=== PATIENT | female | born 2000 | race Two or more races ===

== ENCOUNTER 2019-02-15 10:28 | Emergency (ER) | payer OTHER ==
[2019-02-15 10:36] VITALS: BP 131/65; PULSE 83; TEMP 97; BMI 25.9
[2019-02-15] MEDS ORDERED: ACETAMINOPHEN 500 MG TABLET (FP) PO ONE (11:02)
[2019-02-15] MEDS ORDERED: ACETAMINOPHEN 500 MG TABLET (FP) ONE (11:03)
--- NOTE | 2019-02-15 11:06 | PDOC ---
History of Present Illness - General Chief Complaint: Pain Stated Complaint: LT FOOT PAIN Time Seen by Provider: 02/15/19 10:38 History Source: Patient Exam Limitations: No Limitations - History of Present Illness Initial Comments: 02/15/19 11:03 HISTORY OF PRESENT ILLNESS: 18-year-old woman presents emergency department for evaluation of left calf pain radiating to her left ankle over the past 5 days. 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 Noted when she got home she had pain in the calf which has not improved or worsened since that time. Patient has been amatory without difficulty. Patient denies oral contraceptive use, recent travel, smoking. No recent travel or sick contacts. PAST MEDICAL HISTORY: Denies past medical history SURGICAL HISTORY: Denies ALLERGIES: Ibuprofen REVIEW OF SYSTEMS General/Constitutional: Denies fever or chills. Denies weakness, weight change. HEENT: Denies change in vision. Denies ear pain or discharge. Denies sore throat. Cardiovascular: Denies chest pain or shortness of breath. Respiratory: Denies cough, wheezing, or hemoptysis. Gastrointestinal: Denies nausea, vomiting, diarrhea or constipation. Denies rectal bleeding. Genitourinary: Denies dysuria, frequency, or change in urination. Musculoskeletal: See HPI Skin and breasts: Denies rash or easy bruising. Neurologic: Denies headache, vertigo, loss of consciousness, or loss of sensation. Psychiatric: Denies depression or anxiety. Endocrine: Denies increased thirst. Denies abnormal weight change. Hematologic/Lymphatic: Denies anemia, easy bleeding, or history of blood clots. Allergic/Immunologic: Denies hives or skin allergy. Denies latex allergy. PHYSICAL EXAM General Appearance: Well-appearing, appropriately dressed. No apparent distress , no intoxication. Respiratory/Chest: Lungs CTAB. No shortness of breath, chest tenderness, respiratory distress, accessory muscle use. No crackles, rales, rhonchi, stridor , wheezing, dullness Cardiovascular: RRR. S1, S2. No JVD, murmur, bradycardia, tachycardia. Vascular Pulses: Dorsalis-Pedis (R): 2+, Dorsalis-Pedis (L): 2+ Musculoskeletal/Extremities: Normal inspection. Left calf swelling present with calf tenderness present in the left popliteal extending to the mid calf region. No cords present. Negative Bennett test. No erythema noted. Capillary refill is within normal limits. Full flexion and extension of left knee and ankle present. No bony deformity, crepitus or step-off is present. Neurovascularly intact. Integumentary: Appropriate color, dry, warm. No cyanosis, erythema, jaundice or rash 02/15/19 11:05 Past History - Past Medical History Allergies/Adverse Reactions: Allergies Allergy/AdvReac Type Severity Reaction Status Date / Time ibuprofen [From Motrin] Allergy Verified 02/15/19 10:36 Home Medications: Ambulatory Orders NK [No Known Home Medication] 02/15/19 COPD: No - Psycho Social/Smoking Cessation Hx Smoking History: Never smoked *Physical Exam - Vital Signs Last Vital Signs Temp Pulse Resp BP Pulse Ox 97 F L 83 18 131/65 99 02/15/19 10:31 02/15/19 10:31 02/15/19 10:31 02/15/19 10:31 02/15/19 10:31 ED Treatment Course - RADIOLOGY Radiology Studies Ordered: Category Date Time Status DUPLEX VASCUL US-1 LEG [US] Stat Ultrasound 02/15/19 11:02 Ordered Medical Decision Making - Medical Decision Making 02/15/19 11:05 A/P: 18-year-old woman with left calf pain for the past 5 days Patient denies trauma Negative Bennett test No bony tenderness, crepitus, deformity or step-off is present Tenderness to the left calf at the insertion point of the gastroc in the popliteal region extending to the mid calf. No cords present No erythema present Calf is swollen compared to unaffected side. Tylenol 1 g orally now Duplex Doppler to rule out DVT Reassess 02/15/19 11:55 Ultrasound is read by Dr. Armenta: No DVT is identified involving the left leg No obvious popliteal fossa cyst is noted. I will discharge the patient home to follow-up with her primary doctor. I discussed the physical exam findings, ancillary test results and final diagnoses with the patient. I answered all of the patient's questions. The patient was satisfied with the care received and felt comfortable with the discharge plan and treatment plan. The patient will call their primary care physician within 24 hours to arrange follow-up and will return to the Emergency Department with any new, persistent or worsening symptoms. Discharge - Discharge Information Problems reviewed: Yes Clinical Impression/Diagnosis: Pain of left calf Condition: Stable Disposition: HOME - Admission No - Follow up/Referral Referrals: Valerie Judge [Primary Care Provider] - - Patient Discharge Instructions Additional Instructions: Your ultrasound today is negative. Your emergency department visit is incomplete until you follow-up with your regular doctor. Take Tylenol as needed for pain. Follow manager servicing's instructions for appropriate dosage. Return to emergency department for any new or worsening symptoms. Thank you very much for choosing us to provide your emergent health care needs. - Post Discharge Activity Work/Back to School Note: Back to Work
== END 2019-02-15 12:02 | disposition home or self-care (01) ==
LOC: JERFT 10:28
DX: M79.662 Pain in left lower leg (principal); Z88.8 Allergy status to other drugs, medicaments and biological substances
CPT/HCPCS: 93971-TC; 99282-25

== ENCOUNTER 2019-04-16 21:52 | Emergency (ER) | payer OTHER ==
[2019-04-16 22:37] VITALS: TEMP 98.2; BMI 27.8
--- NOTE | 2019-04-16 23:14 | PDOC ---
History of Present Illness - General Chief Complaint: Allergic Reaction Stated Complaint: ALLERGIC REACTION Time Seen by Provider: 04/16/19 23:13 - History of Present Illness Initial Comments: 04/16/19 23:14 HPI: 18 y/o F with hx of allergies presenting with allergic reaction. She states around 7pm she started feeling throat closing and SOB with rash and itching; took benadryl with mild improvement. Around 9pm, her lips and cheeks started swelling and presented to the ED for evaluation. She reports daily allergic reactions with rash and throat tightness for the past 3 weeks but today the lip swelling was new. She reports similar symptoms in the past 3 years ago and 5 years ago that required eval in the ED and has been prescribed Epipens. She denies COATES, LH, syncope, chest pain, palptiations, abd pain, n/v, diarrhea, voice change. She reports mild throat discomfort with swallowing PO. She reports new clothes, pillows, and sheets and is unable to illicit pattern. On further questioning, mother states that it may be chocolate that she has been eating every night. PMHx: as noted above ROS: as noted SHx: Denies tobacco use; no alcohol use; no rec drugs Allergies: NKDA ROS: GENERAL/CONSTITUTIONAL: No fever or chills. No weakness. HEAD, EYES, EARS, NOSE AND THROAT: No change in vision. No ear pain or discharge. No sore throat. CARDIOVASCULAR: No chest pain; +shortness of breath RESPIRATORY: No cough, wheezing, or hemoptysis. GASTROINTESTINAL: No nausea, vomiting, diarrhea or constipation. GENITOURINARY: No dysuria, frequency, or change in urination. MUSCULOSKELETAL: No joint or muscle swelling or pain. No neck or back pain. SKIN: +rash NEUROLOGIC: No headache, vertigo, loss of consciousness, or change in strength/ sensation. ENDOCRINE: No increased thirst. No abnormal weight change HEMATOLOGIC/LYMPHATIC: No anemia, easy bleeding, or history of blood clots. ALLERGIC/IMMUNOLOGIC: No hives or skin allergy. PE: GENERAL: Awake, alert, and fully oriented, no acute distress HEAD: No signs of trauma, normocephalic, atraumatic; edema of BL maxillary prominence EYES: EOMI, sclera anicteric, conjunctiva clear ENT: Auricles normal inspection, hearing grossly normal, nares patent, oropharynx clear without exudates. Moist mucosa. upper and lower lips with edema ; no intraoral edema NECK: Normal ROM, no lymphadenopathy, no stridor LUNGS: No increased work of breathing, symmetrical chest rise, clear to auscultation bilaterally, no wheezes, crackles or rhonchi, no stridor HEART: Regular rate, regular rhythm, normal S1 and S2, no murmur, peripheral pulses 2+ and equal bilaterally. ABDOMEN: Soft, nondistended, nontender, normoactive bowel sounds. No guarding, no rebound. No masses. No CVAT MUSCULOSKELETAL: FROM NEUROLOGICAL: Cranial nerves II through XII grossly intact. Normal speech, normal gait, no focal sensorimotor deficits SKIN: Warm, Dry, normal turgor, no rashes or lesions noted Past History - Past Medical History Allergies/Adverse Reactions: Allergies Allergy/AdvReac Type Severity Reaction Status Date / Time ibuprofen [From Motrin] Allergy Verified 04/17/19 00:42 Home Medications: Ambulatory Orders NK [No Known Home Medication] 02/15/19 COPD: No - Psycho Social/Smoking Cessation Hx Smoking History: Never smoked Have you smoked in the past 12 months: No Information on smoking cessation initiated: No Hx Alcohol Use: No Drug/Substance Use Hx: No *Physical Exam - Vital Signs Last Vital Signs Temp Pulse Resp BP Pulse Ox 98.2 F 95 H 20 153/95 98 04/16/19 22:33 04/16/19 22:33 04/16/19 22:33 04/16/19 22:33 04/16/19 22:33 Medical Decision Making - Medical Decision Making 04/17/19 01:12 18 y/o F with hx of allergies presenting with allergic reaction. VSS, AF. PE with edematous BL maxillary prominences and upper/lower lips. -iv pepcid, solumedrol, benadryl -observe and reassess 04/17/19 01:13 patient stable and no current complaints recommending referral to skiver box toe discussed with patient and no questions at this time will send epipen to pharmacy Discharge - Discharge Information Problems reviewed: Yes Clinical Impression/Diagnosis: Allergic reaction Qualifiers: Encounter type: initial encounter Qualified Code(s): T78.40XA - Allergy, unspecified, initial encounter Angioedema of lips Qualifiers: Encounter type: initial encounter Qualified Code(s): T78.3XXA - Angioneurotic edema, initial encounter Condition: Improved Disposition: HOME - Follow up/Referral Referrals: Valerie Judge [Primary Care Provider] - - Patient Discharge Instructions Patient Printed Discharge Instructions: DI for General Allergic Reactions, DI for Angioedema Additional Instructions: Additional Instructions: Please return to the emergency department with any new or worsening symptoms or concerns including significant difficulty breathing, chest pain, seizure, fainting. Please follow up with your scheduled appointment tomorrow. Please followup with an skiver box toe to verify cause of allergies Please take Epipen when you feel allergic reaction and shortness of breath with effects on your throat. - Post Discharge Activity
[2019-04-16] MEDS ORDERED: FAMOTIDINE 20 MG/50 ML IVPB 20 MG/50 ML MG IVPB ONE ×2 (23:31→23:57)
[2019-04-16] MEDS ORDERED: methylPREDNISolone NA SUCC 125 MG/2 ML VIAL IVPUSH ONE (23:36)
[2019-04-16] MEDS ORDERED: methylPREDNISolone NA SUCC 125 MG/2 ML VIAL ONE (23:57)
--- NOTE | 2019-04-17 00:03 | PDOC ---
Documentation entered by Dayne Kovacs SCRIBE, acting as scribe for Desiree Tejada DO. Desiree Tejada, : This documentation has been prepared by the Fermín castellanos Angel, SCRIBE, under my direction and personally reviewed by me in its entirety. I confirm that the documentation accurately reflects all work, treatment, procedures, and medical decision making performed by me. Attending Attestation - Resident Resident Name: Dominik Mojica - ED Attending Attestation I have performed the following: I have examined & evaluated the patient, The case was reviewed & discussed with the resident, I agree w/resident's findings & plan, Exceptions are as noted - HPI HPI: 04/16/19 23:55 The patient is a 18 year old female with no significant PMH who presents to the emergency department for lip swelling this evening. Pt reports she ate chocolate around 6pm and initially developed itchiness on her body, followed by lip swelling at 7pm. Mother at bedside states the patient endorses similar symptoms every night every time she eats chocolate. Pt states she takes benadryl daily for similar symptoms. Pt states she has an appointment with her Doctor tomorrow but, has never seen an logistics planning manager. The patient denies chest pain, shortness of breath, headache and dizziness. Denies fever, chills, cough, nausea, vomiting. Allergies: Ibuprofen PCP: Valerie Gillette - Physicial Exam PE: 04/16/19 23:56 GENERAL: Awake, alert, and fully oriented, in no acute distress HEAD: No signs of trauma EYES: PERRLA, EOMI, sclera anicteric, conjunctiva clear ENT: Auricles normal inspection, hearing grossly normal, nares patent, oropharynx clear without exudates. Moist mucosa. +lip swelling. No stridor, no tongue swelling, no rashes or secretions NECK: Normal ROM, supple, no lymphadenopathy, JVD, or masses LUNGS: Breath sounds equal, clear to auscultation bilaterally. No wheezes, and no crackles HEART: Regular rate and rhythm, normal S1 and S2, no murmurs, rubs or gallops ABDOMEN: Soft, nontender, normoactive bowel sounds. No guarding, no rebound. No masses EXTREMITIES: Normal range of motion, no edema. No clubbing or cyanosis. No cords, erythema, or tenderness NEUROLOGICAL: Cranial nerves II through XII grossly intact. SKIN: Warm, Dry, normal turgor, no rashes or lesions noted. - Medical Decision Making 04/17/19 00:01 a/p: 18yo female with lip swelling -no tongue or posterior pharynx swelling -speaking in full sentences, tolerating secretions -pt states she felt itchy around 7p tonight and did take benadryl at home, itching has resolved but lips are swollen -states itchy and swelling most nights over the last few weeks -pt denies cough/wheezing, sob, no diarrhea -will medicate for allergic reaction -will monitor and reassess 04/17/19 00:48 lip swelling improving pt feels better will continue to monitor 04/17/19 01:46 pt feeling much better lips back to normal no itching stable for dc to home and follow up with Program Proposals Coordinator -will give epipen -will also give meds -discussed avoiding chocolate -answered all questions -pt stable for dc to home
[2019-04-17 01:59] VITALS: BP 139/68; PULSE 82
== END 2019-04-17 01:59 | disposition home or self-care (01) ==
LOC: JER 21:52
PROC: 3E033GC Introduction of Other Therapeutic Substance into Peripheral Vein, Percutaneous Approach (ICD-10-PCS; principal; 2019-04-16)
PROC: 3E0333Z Introduction of Anti-inflammatory into Peripheral Vein, Percutaneous Approach (ICD-10-PCS; 2019-04-16)
PROC: 3E033GC Introduction of Other Therapeutic Substance into Peripheral Vein, Percutaneous Approach (ICD-10-PCS; 2019-04-16)
DX: T78.3XXA Angioneurotic edema, initial encounter (principal)
CPT/HCPCS: 99282-25

== ENCOUNTER 2019-05-02 09:06 | Emergency (ER) | payer OTHER ==
[2019-05-02 09:26] VITALS: BP 124/68; PULSE 116; TEMP 100.6; BMI 28.7
[2019-05-02] MEDS ORDERED: ACETAMINOPHEN 325 MG TABLET (FP) PO ONE (09:33)
[2019-05-02] MEDS ORDERED: DEXAMETHASONE LIQUID 0.5 MG/5 ML PO ONE (09:34)
[2019-05-02] MEDS ORDERED: ACETAMINOPHEN 500 MG TABLET (FP) ONE (09:36)
[2019-05-02] MEDS ORDERED: DEXAMETHASONE SOD PHOSPHATE 10 MG/1 ML VIAL ONE (09:36)
--- NOTE | 2019-05-02 09:38 | PDOC ---
History of Present Illness - General Chief Complaint: Sore Throat Stated Complaint: SORE THROAT Time Seen by Provider: 05/02/19 09:26 History Source: Patient Exam Limitations: No Limitations Past History - Travel Traveled outside of the country in the last 30 days: No Close contact w/someone who was outside of country & ill: No - Past Medical History Allergies/Adverse Reactions: Allergies Allergy/AdvReac Type Severity Reaction Status Date / Time ibuprofen [From Motrin] Allergy Verified 04/17/19 00:42 Home Medications: Ambulatory Orders Acetaminophen [Tylenol] 650 mg PO PRN 04/17/19 Epinephrine [Epipen 2-John] 0.3 mg IJ ASDIR #1 kit 04/17/19 Famotidine [Pepcid] 20 mg PO DAILY #7 tablet 04/17/19 Amoxicillin/Potassium Clav [Augmentin 875-125 Tablet] 1 each PO 05/02/19 COPD: No - Immunization History Immunization Up to Date: Yes - Psycho Social/Smoking Cessation Hx Smoking History: Never smoked Have you smoked in the past 12 months: No Information on smoking cessation initiated: No Hx Alcohol Use: No Drug/Substance Use Hx: No Review of Systems - Review of Systems Able to Perform ROS?: Yes Comments:: 05/02/19 09:41 CONSTITUTIONAL: Absent: fever, chills, diaphoresis, generalized weakness, malaise, loss of appetite HEENT: Present: Sore throat absent: rhinorrhea, nasal congestion, throat pain, throat swelling, difficulty swallowing, mouth swelling, ear pain, eye pain, visual Changes CARDIOVASCULAR: Absent: chest pain, loss of consciousness, palpitations, irregular heart rate, peripheral edema RESPIRATORY: Absent: cough, shortness of breath, dyspnea with exertion, orthopnea, wheezing, stridor, hemoptysis SKIN: Absent: rash, itching, pallor NEUROLOGIC: Absent: headache, focal weakness or paresthesias, dizziness, unsteady gait, seizure, mental status changes, bladder or bowel incontinence PSYCHIATRIC: Absent: anxiety, depression, suicidal or homicidal ideation, hallucinations. Is the patient limited [place] Island[place] proficient: No *Physical Exam - Vital Signs Last Vital Signs Temp Pulse Resp BP Pulse Ox 100.6 F H 116 H 17 124/68 100 05/02/19 09:24 05/02/19 09:24 05/02/19 09:24 05/02/19 09:24 05/02/19 09:24 - Physical Exam 05/02/19 09:43 GENERAL: The patient is awake, alert, and fully oriented, in no acute distress. HEAD: Normal with no signs of trauma. EYES: Pupils equal, round and reactive to light, extraocular movements intact, sclera anicteric, conjunctiva clear. HEENT: No nasal congestion or rhinorrhea. No sinus Tenderness. Mucous membranes are moist. (+) tonsillar erythema with vesicles in the posterior pharynx. No exudate or edema. Uvula is midline. No TM bulging, dullness or erythema EXTREMITIES: Normal range of motion, no edema. NEUROLOGICAL: Normal speech, normal gait. PSYCH: Normal mood, normal affect. SKIN: Warm, Dry, normal turgor, no rashes or lesions noted. Medical Decision Making - Medical Decision Making 05/02/19 09:54 The patient is a 18-year-old female no past medical history who presents to the ER today for sore throat and fever since . She states she was seen at [facility] and given Augmentin, but she is still having pain and fever. She also states she has some chest discomfort. She has not taken any Tylenol for her fever today. A/P: Herpangina On exam patient with vesicles to the posterior pharynx with surrounding erythema. Patient already on Augmentin. We will give Decadron and Tylenol in the ER for symptomatic relief. Discharge home with good home care instructions and return precautions. I discussed the physical exam findings, ancillary test results and final diagnoses with the patient. I answered all of the patient's questions. The patient was satisfied with the care received and felt comfortable with the discharge plan and treatment plan. The Patient agrees to follow up with the primary care physician/specialist within 24-72 hours. Return precautions were given. Discharge - Discharge Information Problems reviewed: Yes Clinical Impression/Diagnosis: Acute herpangina Condition: Stable Disposition: HOME - Admission No - Follow up/Referral Referrals: Greyson Chandler MD [Staff Physician] - - Patient Discharge Instructions Patient Printed Discharge Instructions: DI for Pharyngitis/Tonsillopharyngitis -- Adult Additional Instructions: You have a sore throat with blisters also called herpangina. Continue taking the Augmentin as previously prescribed. You may take Tylenol 1000 mg every 6 hours for pain or fever Please do warm water gargles and cough drops to help with your pain. Use ice pops, ice cream, to help with the pain. Change your toothbrush when you started feeling better. Follow-up with your primary care doctor this week.. Return to the ER for fever, difficulty breathing, difficulty swallowing, or if you have any changes in your symptoms. - Post Discharge Activity Work/Back to School Note: Back to Work
--- NOTE | 2019-05-04 10:04 | EKG ---
Test Reason : Blood Pressure : / mmHG Vent. Rate : 103 BPM Atrial Rate : 103 BPM P-R Int : 164 ms QRS Dur : 078 ms QT Int : 340 ms P-R-T Axes : 047 089 021 degrees QTc Int : 445 ms SINUS TACHYCARDIA POSSIBLE LEFT ATRIAL ENLARGEMENT BORDERLINE ECG NO PREVIOUS ECGS AVAILABLE Confirmed by Tod Engel ([id number]) on 05/04/2019 10:04:19 AM Referred By: Confirmed By:Tod Engel
== END 2019-05-02 10:15 | disposition home or self-care (01) ==
LOC: JERFT 09:06
DX: B08.5 Enteroviral vesicular pharyngitis (principal)
CPT/HCPCS: 93005; 93010; 99283-25